=== PATIENT | female | born 1995 | race Caucasian/White ===

== ENCOUNTER 2020-07-10 04:59 | Emergency (ER) | payer BC, MEDICAID ==
[2020-07-10 05:06] VITALS: RESP 18; TEMP 98.1
[2020-07-10] MEDS ORDERED: KETOROLAC 15 MG/ML 1 ML VIAL IVP STA (05:35)
[2020-07-10] MEDS ORDERED: ONDANSETRON 4 MG/2 ML VIAL IVP STA (05:35)
--- NOTE | 2020-07-10 05:44 | ED ---
Abdominal Pain HPI - General Chief Complaint: Abdominal Pain Stated Complaint: abd pain, vomiting Time Seen by Provider: 07/10/20 05:27 Source: patient Mode of arrival: ambulatory Limitations: no limitations - History of Present Illness MD Complaint: abdominal pain Onset/Timin -: days(s) Location: RLQ Radiation: none Migration to: no migration Severity: severe Quality: cramping Consistency: colicky Improves With: nothing Worsens With: nothing Associated Symptoms: nausea, vomiting - Related Data LMP (females 10-50): this week Home Medications Medication Instructions Recorded Confirmed Nia-Jjen-Fagzc Acid 1 tab PO DAILY 11/17/14 11/17/14 [-U Capsule] Previous Rx's Medication Instructions Recorded Acetaminophen-Codeine 300-30mg 2 each PO Q4HR PRN #30 tab 11/19/14 [Tylenol w/codeine #3] Ibuprofen [Motrin] 600 mg PO Q6HR PRN #30 tab 11/19/14 Ondansetron Odt [Zofran ODT] 4 mg PO Q8HR PRN #10 tab 07/10/20 Allergies Allergy/AdvReac Type Severity Reaction Status Date / Time No Known Allergies Allergy Verified 07/10/20 05:06 Review of Systems ROS Statement: Those systems with pertinent positive or pertinent negative responses have been documented in the HPI. ROS Other: All systems not noted in ROS Statement are negative. Constitutional: Denies: fever, chills Respiratory: Denies: cough, dyspnea Cardiovascular: Denies: chest pain, palpitations, edema Gastrointestinal: Reports: as per HPI, abdominal pain, nausea, vomiting. Denies: diarrhea, constipation, melena, hematochezia Genitourinary: Denies: dysuria, hematuria Musculoskeletal: Denies: back pain Skin: Denies: rash Neurological: Denies: headache, weakness, numbness Past Medical History Past Medical History: No Reported History Additional Past Medical History / Comment(s): Obstetric history: This is her first and she has had care with me since 8 weeks gestation. O+, abs neg, Rub Imm, RPR NR, Hep neg, HIV NR. Declined quad, normal anatomy US. passed 1hr GTT and GBS neg. History of Any Multi-Drug Resistant Organisms: None Reported Past Surgical History: Adenoidectomy, Tonsillectomy Past Anesthesia/Blood Transfusion Reactions: No Reported Reaction Past Psychological History: No Psychological Hx Reported Smoking Status: Never smoker Past Alcohol Use History: Occasional Past Drug Use History: None Reported - Past Family History Father Family Medical History: No Reported History General Exam Limitations: no limitations General appearance: alert, in no apparent distress Head exam: Present: atraumatic, normocephalic Eye exam: Present: normal appearance. Absent: scleral icterus, conjunctival injection Neck exam: Present: normal inspection Respiratory exam: Present: normal lung sounds bilaterally. Absent: respiratory distress, wheezes, rales, rhonchi, stridor Cardiovascular Exam: Present: regular rate, normal rhythm, normal heart sounds. Absent: systolic murmur, diastolic murmur, rubs, gallop GI/Abdominal exam: Present: soft. Absent: distended, tenderness, guarding, rebound, rigid, mass, pulsatile mass Extremities exam: Present: normal inspection, normal capillary refill. Absent: pedal edema, calf tenderness Back exam: Present: normal inspection. Absent: CVA tenderness (R), CVA tend erness (L) Neurological exam: Present: alert Skin exam: Present: warm, dry, intact, normal color. Absent: rash Course Vital Signs 07/10/20 07/10/20 05:02 07:58 Temperature 98.1 F 98.1 F Pulse Rate 80 73 Respiratory 18 18 Rate Blood Pressure 133/87 109/74 O2 Sat by Pulse 99 99 Oximetry Medical Decision Making - Medical Decision Making 's patient with right lower quadrant abdominal pain and episode of vomiting. After analgesic in the emergency department she is feeling much better. The vomiting has resolved. There is no tenderness on the exam. We did discuss possibility of early appendicitis. Patient states also has had issues with constipation and will be given magnesium citrate to try at home. Discussed appropriate further care and follow-up including reevaluation of the abdomen in 12-24 hours if not improving sooner if any worsening. - Lab Data Result diagrams: 07/10/20 05:37 07/10/20 05:37 Lab Results 07/10/20 07/10/20 07/10/20 Range/Units 05:37 05:37 05:37 WBC 8.2 (3.8-10.6) k/uL RBC 4.86 (3.80-5.40) m/uL Hgb 14.1 (11.4-16.0) gm/dL Hct 40.1 (34.0-46.0) % MCV 82.5 (80.0-100.0) fL MCH 28.9 (25.0-35.0) pg MCHC 35.1 (31.0-37.0) g/dL RDW 12.7 (11.5-15.5) % Plt Count 222 (150-450) k/uL MPV 7.1 Neutrophils % 75 % Lymphocytes % 18 % Monocytes % 4 % Eosinophils % 1 % Basophils % 1 % Neutrophils # 6.2 (1.3-7.7) k/uL Lymphocytes # 1.5 (1.0-4.8) k/uL Monocytes # 0.4 (0-1.0) k/uL Eosinophils # 0.1 (0-0.7) k/uL Basophils # 0.0 (0-0.2) k/uL Sodium (137-145) mmol/L Potassium (3.5-5.1) mmol/L Chloride (98-107) mmol/L Carbon Dioxide (22-30) mmol/L Anion Gap mmol/L BUN (7-17) mg/dL Creatinine (0.52-1.04) mg/dL Est GFR (CKD-EPI)AfAm (>60 ml/min/1.73 sqM) Est GFR (CKD-EPI)NonAf (>60 ml/min/1.73 sqM) Glucose (74-99) mg/dL Calcium (8.4-10.2) mg/dL Total Bilirubin (0.2-1.3) mg/dL AST (14-36) U/L ALT (4-34) U/L Alkaline Phosphatase (38-126) U/L C-Reactive Protein (<10.0) mg/L Total Protein (6.3-8.2) g/dL Albumin (3.5-5.0) g/dL Amylase (30-110) U/L Lipase (23-300) U/L Urine Color Yellow Urine Appearance Clear (Clear) Urine pH 6.0 (5.0-8.0) Ur Specific [place] 1.024 (1.001-1.035) Urine Protein Negative (Negative) Urine Glucose (UA) Negative (Negative) Urine Ketones Negative (Negative) Urine Blood Trace H (Negative) Urine Nitrite Negative (Negative) Urine Bilirubin Negative (Negative) Urine Urobilinogen <2.0 (<2.0) mg/dL Ur Leukocyte Esterase Negative (Negative) Urine RBC 1 (0-5) /hpf Urine WBC 3 (0-5) /hpf Ur Squamous Epith Cells 2 (0-4) /hpf Hyaline Casts 1 (0-2) /lpf Urine Mucus Occasional H (None) /hpf Urine HCG, Qual Not Detected (Not Detectd) 07/10/20 Range/Units 05:37 WBC (3.8-10.6) k/uL RBC (3.80-5.40) m/uL Hgb (11.4-16.0) gm/dL Hct (34.0-46.0) % MCV (80.0-100.0) fL MCH (25.0-35.0) pg MCHC (31.0-37.0) g/dL RDW (11.5-15.5) % Plt Count (150-450) k/uL MPV Neutrophils % % Lymphocytes % % Monocytes % % Eosinophils % % Basophils % % Neutrophils # (1.3-7.7) k/uL Lymphocytes # (1.0-4.8) k/uL Monocytes # (0-1.0) k/uL Eosinophils # (0-0.7) k/uL Basophils # (0-0.2) k/uL Sodium 138 (137-145) mmol/L Potassium 3.4 L (3.5-5.1) mmol/L Chloride 105 (98-107) mmol/L Carbon Dioxide 26 (22-30) mmol/L Anion Gap 7 mmol/L BUN 10 (7-17) mg/dL Creatinine 0.65 (0.52-1.04) mg/dL Est GFR (CKD-EPI)AfAm >90 (>60 ml/min/1.73 sqM) Est GFR (CKD-EPI)NonAf >90 (>60 ml/min/1.73 sqM) Glucose 126 H (74-99) mg/dL Calcium 9.1 (8.4-10.2) mg/dL Total Bilirubin 1.0 (0.2-1.3) mg/dL AST 20 (14-36) U/L ALT 21 (4-34) U/L Alkaline Phosphatase 96 (38-126) U/L C-Reactive Protein 6.3 (<10.0) mg/L Total Protein 7.1 (6.3-8.2) g/dL Albumin 4.4 (3.5-5.0) g/dL Amylase 69 (30-110) U/L Lipase 62 (23-300) U/L Urine Color Urine Appearance (Clear) Urine pH (5.0-8.0) Ur Specific [place] (1.001-1.035) Urine Protein (Negative) Urine Glucose (UA) (Negative) Urine Ketones (Negative) Urine Blood (Negative) Urine Nitrite (Negative) Urine Bilirubin (Negative) Urine Urobilinogen (<2.0) mg/dL Ur Leukocyte Esterase (Negative) Urine RBC (0-5) /hpf Urine WBC (0-5) /hpf Ur Squamous Epith Cells (0-4) /hpf Hyaline Casts (0-2) /lpf Urine Mucus (None) /hpf Urine HCG, Qual (Not Detectd) Disposition Clinical Impression: Abdominal pain Disposition: HOME SELF-CARE Condition: Good Instructions (If sedation given, give patient instructions): Abdominal Pain (ED) Additional Instructions: As we discussed, should you experience worsening abdominal pain, or any of the other symptoms we discussed, return to make sure that this is not the start of appendicitis. Prescriptions: Ondansetron Odt [Zofran ODT] 4 mg PO Q8HR PRN #10 tab PRN Reason: Nausea Is patient prescribed a controlled substance at d/c from ED?: No Referrals: Best Thomas MD [Primary Care Provider] - 1-2 days
[2020-07-10 05:45] LABS: Basophils % (A) 1 %; Eosinophils # (A) 0.1 k/uL (0-0.7); Eosinophils % (A) 1 %; HCT 40.1 % (34.0-46.0); HGB 14.1 gm/dL (11.4-16.0); Lymphocytes # (A) 1.5 k/uL (1.0-4.8); Lymphocytes % (A) 18 %; MCH 28.9 pg (25.0-35.0); MCHC 35.1 g/dL (31.0-37.0); MCV 82.5 fL (80.0-100.0); Mean Platelet Volume 7.1; Monocytes # (A) 0.4 k/uL (0-1.0); Monocytes % (A) 4 %; Neutrophils # (A) 6.2 k/uL (1.3-7.7); Neutrophils % (A) 75 %; Platelet Count 222 k/uL (150-450); RBC 4.86 m/uL (3.80-5.40); RDW 12.7 % (11.5-15.5); WBC 8.2 k/uL (3.8-10.6)
[2020-07-10 05:47] LABS: Appearance,Urine Clear (Clear); Bilirubin,Urine Negative (Negative); Blood,Urine Trace (Negative); Color,Urine Yellow; Glucose,Urine (UA) Negative (Negative); Hyaline Casts,Urine 1 /lpf (0-2); Ketones,Urine Negative (Negative); Leukocyte Esterase,Urine Negative (Negative); Mucus,Urine Occasional /hpf; Nitrite,Urine Negative (Negative); Protein,Urine Negative (Negative); RBC,Urine 1 /hpf (0-5); Specific Gravity,Urine 1.024 (1.001-1.035); Squamous Epithelial Cell,Urine 2 /hpf (0-4); Urobilinogen,Urine <2.0 mg/dL (<2.0); WBC,Urine 3 /hpf (0-5)
[2020-07-10 05:58] LABS: ALT 21 U/L (4-34); AST 20 U/L (14-36); African American GFR (CKD) >90 (>60 ml/min/1.73 sqM); Albumin 4.4 g/dL (3.5-5.0); Alkaline Phosphatase 96 U/L (38-126); Amylase 69 U/L (30-110); Anion Gap 7 mmol/L; Blood Urea Nitrogen 10 mg/dL (7-17); C Reactive Protein 6.3 mg/L (<10.0); Calcium 9.1 mg/dL (8.4-10.2); Carbon Dioxide 26 mmol/L (22-30); Chloride 105 mmol/L (98-107); Glucose 126 mg/dL (74-99); Lipase 62 U/L (23-300); Non-African American GFR(CKD) >90 (>60 ml/min/1.73 sqM); Potassium 3.4 mmol/L (3.5-5.1); Sodium 138 mmol/L (137-145); Total Protein 7.1 g/dL (6.3-8.2)
--- NOTE | 2020-07-10 06:45 | XR ---
EXAMINATION TYPE: XR KUB DATE OF EXAM: 07/10/2020 6:19 AM CLINICAL HISTORY: Abdominal pain with nausea and vomiting. TECHNIQUE: Two Upright KUB images of the abdomen are obtained. COMPARISON: None. FINDINGS: Gas seen in nondistended stomach bubble. Scattered gas is seen in non-distended small bowel loops. Gas and fecal material is seen in non-distended colon. There is no visceromegaly or abnormal calcification appreciated. Splenic shadow is somewhat prominent. The lung bases are clear and the oss eous structures are intact. IMPRESSION: Overall nonobstructive bowel gas pattern.
[2020-07-10] MEDS ORDERED: MAGNESIUM CITRATE 296 ML BOTTLE PO ONE (07:40)
[2020-07-10 07:59] VITALS: BP 109/74; PULSE 73
== END 2020-07-10 08:00 | disposition home or self-care (01) ==
LOC: EC 04:59
DX: R10.31 Right lower quadrant pain (principal); K59.00 Constipation, unspecified
CPT/HCPCS: 36415; 80053; 82150; 83690; 85025; 86140; 81001; 81025; 74018; 99284; 96374; 96375; J2405; J1885

== ENCOUNTER 2020-07-14 13:05 | Emergency (ER) | payer MEDICAID ==
[2020-07-14 13:09] VITALS: TEMP 99.3
[2020-07-14 14:27] LABS: ALT 16 U/L (4-34); AST 20 U/L (14-36); African American GFR (CKD) >90 (>60 ml/min/1.73 sqM); Albumin 4.4 g/dL (3.5-5.0); Alkaline Phosphatase 79 U/L (38-126); Amylase 56 U/L (30-110); Anion Gap 8 mmol/L; Blood Urea Nitrogen 10 mg/dL (7-17); Calcium 9.2 mg/dL (8.4-10.2); Carbon Dioxide 28 mmol/L (22-30); Chloride 103 mmol/L (98-107); Glucose 100 mg/dL (74-99); Lipase 45 U/L (23-300); Non-African American GFR(CKD) >90 (>60 ml/min/1.73 sqM); Potassium 3.6 mmol/L (3.5-5.1); Sodium 139 mmol/L (137-145); Total Bilirubin 2.2 mg/dL (0.2-1.3); Total Protein 7.3 g/dL (6.3-8.2)
[2020-07-14 14:28] LABS: Appearance,Urine Cloudy (Clear); Bacteria,Urine Rare /hpf; Basophils % (A) 0 %; Bilirubin,Urine Negative (Negative); Blood,Urine Negative (Negative); Color,Urine Yellow; Eosinophils # (A) 0.1 k/uL (0-0.7); Eosinophils % (A) 1 %; Glucose,Urine (UA) Negative (Negative); HCT 37.6 % (34.0-46.0); HGB 13.5 gm/dL (11.4-16.0); Ketones,Urine Trace (Negative); Leukocyte Esterase,Urine Large (Negative); Lymphocytes # (A) 1.1 k/uL (1.0-4.8); Lymphocytes % (A) 14 %; MCH 29.7 pg (25.0-35.0); MCHC 35.9 g/dL (31.0-37.0); MCV 82.7 fL (80.0-100.0); Mean Platelet Volume 7.5; Monocytes # (A) 0.4 k/uL (0-1.0); Monocytes % (A) 5 %; Mucus,Urine Occasional /hpf; Neutrophils # (A) 6.2 k/uL (1.3-7.7); Neutrophils % (A) 79 %; Nitrite,Urine Negative (Negative); PH, Urine 6.5 (5.0-8.0); Platelet Count 197 k/uL (150-450); Protein,Urine Trace (Negative); RBC 4.54 m/uL (3.80-5.40); RBC,Urine 1 /hpf (0-5); RDW 12.5 % (11.5-15.5); Specific Gravity,Urine 1.027 (1.001-1.035); Squamous Epithelial Cell,Urine 6 /hpf (0-4); WBC 7.9 k/uL (3.8-10.6); WBC,Urine 30 /hpf (0-5)
--- NOTE | 2020-07-14 15:13 | CT ---
EXAMINATION TYPE: CT abdomen pelvis w con DATE OF EXAM: 07/14/2020 COMPARISON: NONE HISTORY: 25-year-old female Lower abdominal pain, tenderness upon palpation. TECHNIQUE: Contiguous axial scanning of the abdomen and pelvis following administration of 100 ml Iso alfonso 300 IV contrast. Delayed images through the kidneys and coronal/sagittal reconstructions perform ed. CT DLP: 1131.8 mGycm Automated exposure control for dose reduction was used. FINDINGS: LUNG BASES: Small hiatal hernia. No significant abnormality is otherwise appreciated. LIVER/GB: Some focal fat along the anterior falciform ligament. No biliary ductal dilatation. Portal venous system is patent. Gallbladder within normal limits. PANCREAS: No significant abnormality is seen. SPLEEN: Enlarged at 15.2 cm measured on coronal series. ADRENALS: No significant abnormality is seen. KIDNEYS: No significant abnormality is seen. LYMPH NODES: No mesenteric or retroperitoneal lymphadenopathy. No pelvic lymphadenopathy seen. BOWEL: No dilated small bowel or free air. Scattered trace lower abdominal ascites is present. More m ild to moderate ascites in the pelvis. Mild stool within the right side of the colon. Normal appendix . No pericolonic inflammatory change. PELVIS: Uterus is anteverted. Both ovaries are visualized with follicular change. Adjacent to the rig ht ovary is a 6.3 cm cystic lesion with surrounding fat stranding and free fluid. Otherwise, the ovar ies show follicular change. BONES: No osseous destructive process. IMPRESSION: 1. INFLAMMATORY CHANGE IN THE PELVIS WITH MILD TO MODERATE PELVIC ASCITES. CHANGES SEEM TO BE CENTERE D ON A 6.3 CM CYSTIC LESION ADJACENT TO THE RIGHT OVARY, POSSIBLE PARAOVARIAN CYST. GIVEN THE INFLAMM ATION, CORRELATE TO EXCLUDE PID OR OTHER ENTITIES SUCH SUPERINFECTION OF A HINDGUT DUPLICATION CYS T. PELVIC ULTRASOUND MAY BE HELPFUL IN FURTHER CHARACTERIZING. 2. TRACE ASCITES EXTENDS INTO THE LOWER ABDOMEN. 3. SPLENOMEGALY AT 15.2 CM. SMALL HIATAL HERNIA.
[2020-07-14 15:49] VITALS: RESP 18
[2020-07-14] MEDS ORDERED: MORPHINE SULFATE 2 MG/ML SYRINGE IVP STA (15:56)
[2020-07-14] MEDS ORDERED: AMPICILLIN-SULBACTAM 1.5 GM in SODIUM CHLORIDE 0.9% 50 ML IVPB STA (16:03)
[2020-07-14] MEDS ORDERED: DOXYCYCLINE 100 MG CAP PO STA (16:03)
[2020-07-14] MEDS ORDERED: AMPICILLIN-SULBACTAM 3 GM in SODIUM CHLORIDE 0.9% 100 ML IVPB STA (16:05)
[2020-07-14] MEDS ORDERED: SODIUM CHLORIDE 0.9% 1,000 ML IV ONE (16:07)
--- NOTE | 2020-07-14 16:07 | US ---
EXAMINATION TYPE: US pelvic complete plus Doppler DATE OF EXAM: 07/14/2020 COMPARISON: NONE CLINICAL HISTORY: 25-year-old female abdominal pain. Abnormal CT, extreme pelvic pain x 6 days, , low grade fever yesterday TECHNIQUE: Transabdominal sonographic images of the pelvis were acquired. Color Doppler spectral wave form analysis of the ovarian arteries and veins. Date of LMP: 07/09/2020 FINDINGS: EXAM MEASUREMENTS: Uterus: 8.3 x 4.6 x 2.9 cm Endometrial Stripe: 0.6 cm Right Ovary: 4.6 x 3.7 x 2.7 cm Left Ovary: 3.6 x 2.3 x 2.5 cm 1. Uterus: Anteverted and otherwise wnl 2. Endometrium: wnl 3. Right Ovary: 5.3 x 5.3 x 5.8cm adjacent cyst 4. Left Ovary: wnl Spectral, color and waveform doppler imaging shows good arterial and venous flow within the ovaries ; there is no evidence for ovarian torsion. 5. Bilateral Adnexa: mild free fluid in rt adnexa 6. Posterior cul-de-sac: wnl IMPRESSION: 1. Ultrasound shows a 5.8 cm right paraovarian cyst. This does not clearly have the appearance of tub al pathology to suggest a tubo-ovarian abscess. Given the inflammation on CT, PID remains in the diff erential. Clinically correlate. 2. Mild right adnexal free fluid. 3. No evidence for ovarian torsion on either side.
[2020-07-14] MEDS ORDERED: SODIUM CHLORIDE 0.9% 1,000 ML IV SCH (16:15)
--- NOTE | 2020-07-14 16:22 | ED ---
Abdominal Pain HPI - General Chief Complaint: Abdominal Pain Stated Complaint: abd pain Time Seen by Provider: 07/14/20 13:10 Source: patient Mode of arrival: ambulatory Limitations: no limitations - History of Present Illness Initial Comments: 25-year-old female presented for 5 days of lower abdominal pain. Patient states she was recently seen here 5 days ago and had an x-ray and thought she was constipated. Patient states she was discharged with oral constipation medications she states that this did not help with the pain persisted. Patient denies dysuria urgency frequency she states the pain is mostly right-sided and at times radiates to the back. Patient denies fevers she states she has had some nausea no vomiting no diarrhea. Patient denies hematuria history of kidney stones. Patient states she had a 1 day otherwise no vaginal bleeding. pt denies chest pain, dyspnea, upper abdominal pain. pt appears well nontoxic no arrival. - Related Data Home Medications Medication Instructions Recorded Confirmed Ibuprofen [Motrin Ib] 400 mg PO Q8H PRN 07/14/20 07/14/20 Previous Rx's Medication Instructions Recorded Cephalexin [Keflex] 500 mg PO Q8HR 5 Days #15 cap 07/14/20 Doxycycline [Vibramycin] 100 mg PO BID 14 Days #28 capsule 07/14/20 Allergies Allergy/AdvReac Type Severity Reaction Status Date / Time No Known Allergies Allergy Verified 07/14/20 13:37 Review of Systems ROS Statement: Those systems with pertinent positive or pertinent negative responses have been documented in the HPI. ROS Other: All systems not noted in ROS Statement are negative. Past Medical History Past Medical History: No Reported History Additional Past Medical History / Comment(s): Obstetric history: This is her first and she has had care with [facility] since 8 weeks gestation. O+, abs neg, Rub Imm, RPR NR, Hep neg, HIV NR. Declined quad, normal anatomy US. passed 1hr GTT and GBS neg. History of Any Multi-Drug Resistant Organisms: None Reported Past Surgical History: Adenoidectomy, Tonsillectomy Past Anesthesia/Blood Transfusion Reactions: No Reported Reaction Past Psychological History: No Psychological Hx Reported Smoking Status: Never smoker Past Alcohol Use History: Occasional Past Drug Use History: None Reported - Past Family History Father Family Medical History: No Reported History General Exam - General Exam Comments Initial Comments: General: The patient is awake and alert, in no distress Eye: Pupils are equal, round and reactive to light, extra-ocular movements are intact. No nystagmus. There is normal conjunctiva bilaterally. No signs of icterus. Ears, nose, mouth and throat: There are moist mucous membranes and no oral lesions. Neck: The neck is supple, there is no tenderness or JVD. Cardiovascular: There is a regular rate and rhythm. No murmur, rub or gallop is appreciated. Respiratory: Lungs are clear to auscultation, respirations are non-labored, breath sounds are equal. No wheezes, stridor, rales, or rhonchi. Gastrointestinal: Soft, non-distended, diffuse lower abdomina tenderness, poor ly localized overall, L>R. abdomen without masses or organomegaly noted. There is no rebound or guarding present. : pelvic discharge, os closed. some lesions on cervix noted. no external lesions. patient has no specific odors. No cervical motion tenderness very mild left sided adnexal tenderness. Negative chandelier sign Musculoskeletal: Normal ROM, no tenderness. Strength 5/5. Sensation intact. Pulses equal bilaterally 2+. Neurological: A&O x 3. CN II-XII intact grossly, There are no obvious motor or sensory deficits. Coordination appears grossly intact. Speech is normal. Skin: Skin is warm and dry and no rashes or lesions are noted. Psychiatric: Cooperative, appropriate mood & affect, normal judgment. Limitations: no limitations Course Vital Signs 07/14/20 07/14/20 07/14/20 13:06 15:47 16:34 Temperature 99.3 F Pulse Rate 107 H 90 88 Respiratory 20 18 18 Rate Blood Pressure 113/76 109/75 110/75 O2 Sat by Pulse 100 99 100 Oximetry Medical Decision Making - Medical Decision Making Lab stable no leukocytosis patient afebrile nontoxic in appearance. Patient is diffuse lower abdominal tenderness urine concerning for urinary tract infection. Patient pelvic does have some discharge I discussed the cervical lesions and recommended PAP and OBGYN f/u for that finding. Patient CT possible paraovarian cyts. No obvious abscess, or TOA. Patient US no obvious TOA. PID remaining in differential per radiology. No fevers. No leukocytosis negative chandelier sign/cervical motion tenderness. I discussed the case with patients [facility] doctor David after discussing CT results/US results. Labs she feels treating patient for STI and f/u for cyst in office is appropriate this time. I discussed case with Dr Beach who is agreeable to this care plan and discharge, recommending outpatient doxycyclin. Pt agreeable to care plan state she is comfortable wtih disdcharege, pain improved. return parameters discussed at length. - Lab Data Result diagrams: 07/14/20 13:30 07/14/20 13:30 Lab Results 07/14/20 07/14/20 07/14/20 Range/Units 13:30 13:30 13:30 WBC 7.9 (3.8-10.6) k/uL RBC 4.54 (3.80-5.40) m/uL Hgb 13.5 (11.4-16.0) gm/dL Hct 37.6 (34.0-46.0) % MCV 82.7 (80.0-100.0) fL MCH 29.7 (25.0-35.0) pg MCHC 35.9 (31.0-37.0) g/dL RDW 12.5 (11.5-15.5) % Plt Count 197 (150-450) k/uL MPV 7.5 Neutrophils % 79 % Lymphocytes % 14 % Monocytes % 5 % Eosinophils % 1 % Basophils % 0 % Neutrophils # 6.2 (1.3-7.7) k/uL Lymphocytes # 1.1 (1.0-4.8) k/uL Monocytes # 0.4 (0-1.0) k/uL Eosinophils # 0.1 (0-0.7) k/uL Basophils # 0.0 (0-0.2) k/uL Sodium (137-145) mmol/L Potassium (3.5-5.1) mmol/L Chloride (98-107) mmol/L Carbon Dioxide (22-30) mmol/L Anion Gap mmol/L BUN (7-17) mg/dL Creatinine (0.52-1.04) mg/dL Est GFR (CKD-EPI)AfAm (>60 ml/min/1.73 sqM) Est GFR (CKD-EPI)NonAf (>60 ml/min/1.73 sqM) Glucose (74-99) mg/dL Plasma Lactic Acid Amanuel (0.7-2.0) mmol/L Calcium (8.4-10.2) mg/dL Total Bilirubin (0.2-1.3) mg/dL AST (14-36) U/L ALT (4-34) U/L Alkaline Phosphatase (38-126) U/L Total Protein (6.3-8.2) g/dL Albumin (3.5-5.0) g/dL Amylase (30-110) U/L Lipase (23-300) U/L Urine Color Yellow Urine Appearance Cloudy H (Clear) Urine pH 6.5 (5.0-8.0) Ur Specific [place] 1.027 (1.001-1.035) Urine Protein Trace H (Negative) Urine Glucose (UA) Negative (Negative) Urine Ketones Trace H (Negative) Urine Blood Negative (Negative) Urine Nitrite Negative (Negative) Urine Bilirubin Negative (Negative) Urine Urobilinogen 2.0 (<2.0) mg/dL Ur Leukocyte Esterase Large H (Negative) Urine RBC 1 (0-5) /hpf Urine WBC 30 H (0-5) /hpf Ur Squamous Epith Cells 6 H (0-4) /hpf Urine Bacteria Rare H (None) /hpf Urine Mucus Occasional H (None) /hpf Urine HCG, Qual Not Detected (Not Detectd) 07/14/20 07/14/20 Range/Units 13:30 13:30 WBC (3.8-10.6) k/uL RBC (3.80-5.40) m/uL Hgb (11.4-16.0) gm/dL Hct (34.0-46.0) % MCV (80.0-100.0) fL MCH (25.0-35.0) pg MCHC (31.0-37.0) g/dL RDW (11.5-15.5) % Plt Count (150-450) k/uL MPV Neutrophils % % Lymphocytes % % Monocytes % % Eosinophils % % Basophils % % Neutrophils # (1.3-7.7) k/uL Lymphocytes # (1.0-4.8) k/uL Monocytes # (0-1.0) k/uL Eosinophils # (0-0.7) k/uL Basophils # (0-0.2) k/uL Sodium 139 (137-145) mmol/L Potassium 3.6 (3.5-5.1) mmol/L Chloride 103 (98-107) mmol/L Carbon Dioxide 28 (22-30) mmol/L Anion Gap 8 mmol/L BUN 10 (7-17) mg/dL Creatinine 0.70 (0.52-1.04) mg/dL Est GFR (CKD-EPI)AfAm >90 (>60 ml/min/1.73 sqM) Est GFR (CKD-EPI)NonAf >90 (>60 ml/min/1.73 sqM) Glucose 100 H (74-99) mg/dL Plasma Lactic Acid Amanuel 1.2 (0.7-2.0) mmol/L Calcium 9.2 (8.4-10.2) mg/dL Total Bilirubin 2.2 H (0.2-1.3) mg/dL AST 20 (14-36) U/L ALT 16 (4-34) U/L Alkaline Phosphatase 79 (38-126) U/L Total Protein 7.3 (6.3-8.2) g/dL Albumin 4.4 (3.5-5.0) g/dL Amylase 56 (30-110) U/L Lipase 45 (23-300) U/L Urine Color Urine Appearance (Clear) Urine pH (5.0-8.0) Ur Specific [place] (1.001-1.035) Urine Protein (Negative) Urine Glucose (UA) (Negative) Urine Ketones (Negative) Urine Blood (Negative) Urine Nitrite (Negative) Urine Bilirubin (Negative) Urine Urobilinogen (<2.0) mg/dL Ur Leukocyte Esterase (Negative) Urine RBC (0-5) /hpf Urine WBC (0-5) /hpf Ur Squamous Epith Cells (0-4) /hpf Urine Bacteria (None) /hpf Urine Mucus (None) /hpf Urine HCG, Qual (Not Detectd) Disposition Clinical Impression: Abdominal pain, Nausea, UTI (urinary tract infection), Ovarian cyst Disposition: HOME SELF-CARE Condition: Good Instructions (If sedation given, give patient instructions): Pelvic Inflammatory Disease (ED), Ovarian Cyst (ED) Additional Instructions: Please use medication as discussed. Please follow-up with family doctor in the next 2 days, please follow-up with [facility] next week. Return for fevers worsening pain. Please return to emergency room if the symptoms increase or worsen or for any other concerns. Prescriptions: Cephalexin [Keflex] 500 mg PO Q8HR 5 Days #15 cap Doxycycline [Vibramycin] 100 mg PO BID 14 Days #28 capsule Is patient prescribed a controlled substance at d/c from ED?: No Referrals: Best Thomas MD [Primary Care Provider] - 1-2 days Gay Hernandez DO [Doctor of Osteopathic Medicine] - Time of Disposition: 17:14
[2020-07-14] MEDS ORDERED: AZITHROMYCIN 500 MG TAB PO STA (16:47)
[2020-07-14] MEDS ORDERED: cefTRIAXone IN SWFI 1,000 MG/10 ML SYRINGE IVP STA (16:57)
[2020-07-14 17:38] VITALS: BP 109/67; PULSE 84
== END 2020-07-14 17:57 | disposition home or self-care (01) ==
LOC: EC 13:05
DX: N39.0 Urinary tract infection, site not specified (principal); N83.201 Unspecified ovarian cyst, right side
CPT/HCPCS: 99284; 96365; 96375 ×2; 36415; 80053; 82150; 83605; 83690; 85025; 81001; 81025; 87491; 87591; 87070; 87086; 93975; 76856; 74177; J0696; J2270; J0295; Q9967

== ENCOUNTER → 2020-08-24 | Outpatient (CLI) | payer MEDICAID ==
[2020-08-24 16:11] LABS: Basophils # (A) 0.01 X 10*3/uL (0.00-0.10); Basophils % (A) 0.2 %; Eosinophils # (A) 0.04 X 10*3/uL (0.04-0.35); Eosinophils % (A) 0.9 %; HCT 38.6 % (37.2-46.3); HGB 12.8 g/dL (12.0-15.0); Lymphocytes # (A) 1.65 X 10*3/uL (0.90-5.00); Lymphocytes % (A) 37.3 %; MCH 28.6 pg (27.0-32.0); MCHC 33.2 g/dL (32.0-37.0); MCV 86.4 fL (80.0-97.0); Mean Platelet Volume 11.3 fL (9.5-12.2); Monocytes # (A) 0.34 X 10*3/uL (0.20-1.00); Monocytes % (A) 7.7 %; Neutrophils # (A) 2.37 X 10*3/uL (1.80-7.70); Neutrophils % (A) 53.7 %; Platelet Count 195 X 10*3/uL (140-440); RBC 4.47 X 10*6/uL (4.10-5.20); RDW 13.2 % (11.5-14.5); WBC 4.42 X 10*3/uL (4.50-10.00)
[2020-08-24 16:46] LABS: African American GFR (CKD) 117.1 (60.0-200.0); Albumin 4.9 g/dL (3.80-4.90); Albumin/Globulin Ratio 2.72 (1.60-3.17); BUN/Creat Ratio 17.5 Ratio (12.00-20.00); Calcium 9.1 mg/dL (8.7-10.3); Chol/HDL Ratio 3.9; Globulin 1.8 g/dL (1.6-3.3); LDL Cholesterol,Calculated 100.8 mg/dL (0.0-131.0); Total Bilirubin 2.1 mg/dL (0.3-1.2); Total Protein 6.7 g/dL (6.2-8.2); VLDL Calculation 15.2 mg/dL (5.00-40.00)
== END | disposition home or self-care (01) ==
LOC: LABWHC1 10:25
PROVIDERS: ATTEND Family Medicine
DX: Z00.00 Encounter for general adult medical examination without abnormal findings (principal)
CPT/HCPCS: 36415; 80053; 80061; 82306; 85025

== ENCOUNTER → 2020-08-31 | Outpatient (CLI) | payer MEDICAID ==
--- NOTE | 2020-08-31 09:17 | US ---
EXAMINATION TYPE: US pelvis complete transvag DATE OF EXAM: 08/31/2020 COMPARISON: 07/14/2020 CLINICAL HISTORY: 25-year-old female N83.0 right ovarian cyst. Follow up right adnexal cystic lesion. Patient states no pain. TECHNIQUE: Transvaginal (TV) and Transabdominal (TA) . Transabdominal sonographic images of the pel vis were acquired. Transvaginal sonographic images were medically necessary to better assess the fol lowing anatomy: Ovaries Date of LMP: 08/30/2020, FINDINGS: EXAM MEASUREMENTS: Uterus: 6.6 x 5.0 x 4.1 cm Endometrial Stripe: 0.3 cm Right Ovary: 2.7 x 2.3 x 2.0 cm Left Ovary: 3.5 x 2.6 x 2.0 cm 1. Uterus: Anteverted and otherwise wnl 2. Endometrium: wnl 3. Right Ovary: wnl 4. Left Ovary: wnl 5. Bilateral Adnexa: Thick walled cystic lesion with internal echoes adjacent to right ovary = 3.8 x 4.3 x 3.4 cm. Previously measuring 5.8 x 5.3 cm. Possible 9 mm mural-based papillary projection on t he transvaginal images. Mild free fluid adjacent to right ovary. 6. Posterior cul-de-sac: Mild Free fluid IMPRESSION: 1. Right paraovarian cyst remains measuring up to 4.3 cm (versus 5.8 cm, previously). While smaller, the wall appears thicker and there are new internal echoes/debris. Questionable 9 mm papillary projec tion on the transvaginal images. Given the decreasing size, some improvement is suggested. Continued follow-up recommended. 2. Mild right adnexal and cul-de-sac free fluid remains.
== END | disposition home or self-care (01) ==
LOC: RADUSWWP 07:17
PROVIDERS: ATTEND Obstetrics & Gynecology
DX: N83.01 Follicular cyst of right ovary (principal)
CPT/HCPCS: 76830; 76856

== ENCOUNTER 2020-10-05 18:29 | Emergency (ER) | payer MEDICAID ==
--- NOTE | 2020-10-05 19:43 | XR ---
EXAMINATION TYPE: XR chest 2V DATE OF EXAM: 10/05/2020 COMPARISON: NONE HISTORY: Cough. Short of breath. TECHNIQUE: 2 views FINDINGS: Heart and mediastinum are normal. There is some mild infiltrate at the posterior lung bases bilaterally. There are no hilar masses. Bony thorax is intact. IMPRESSION: Mild posterior lung base infiltrates. Normal heart.
--- NOTE | 2020-10-05 21:25 | ED ---
URI HPI - General Chief Complaint: Upper Respiratory Infection Stated Complaint: covid+/sob/cough/nausea/fever Time Seen by Provider: 10/05/20 21:15 Source: patient, RN notes reviewed Mode of arrival: ambulatory Limitations: no limitations - History of Present Illness Initial Comments: Patient is a 25-year-old female presents to emergency room complaining of cough after recently testing positive for Covid on 09/29/2020. She notes that she started having symptoms on 09/28/2020 but developed a cough over the last couple days. She notes a cough is dry nonproductive. She denies any increased shortness of breath or dyspnea. She wanted to come emergency room to get evaluated make sure she doesn't have have a pneumonia or any worsening issues. He denied any chest pain headache nausea vomiting diarrhea constipation fatigue chills. - Related Data Home Medications Medication Instructions Recorded Confirmed Ibuprofen [Motrin Ib] 400 mg PO Q8H PRN 07/14/20 07/14/20 Previous Rx's Medication Instructions Recorded Cephalexin [Keflex] 500 mg PO Q8HR 5 Days #15 cap 07/14/20 Doxycycline [Vibramycin] 100 mg PO BID 14 Days #28 capsule 07/14/20 Allergies Allergy/AdvReac Type Severity Reaction Status Date / Time No Known Allergies Allergy Verified 10/05/20 19:22 Review of Systems ROS Statement: Those systems with pertinent positive or pertinent negative responses have been documented in the HPI. ROS Other: All systems not noted in ROS Statement are negative. Past Medical History Past Medical History: No Reported History Additional Past Medical History / Comment(s): Obstetric history: This is her first and she has had care with [facility] since 8 weeks gestation. O+, abs neg, Rub Imm, RPR NR, Hep neg, HIV NR. Declined quad, normal anatomy US. passed 1hr GTT and GBS neg. History of Any Multi-Drug Resistant Organisms: None Reported Past Surgical History: Adenoidectomy, Tonsillectomy Past Anesthesia/Blood Transfusion Reactions: No Reported Reaction Past Psychological History: No Psychological Hx Reported Smoking Status: Never smoker Past Alcohol Use History: Occasional Past Drug Use History: None Reported - Past Family History Father Family Medical History: No Reported History General Exam Limitations: no limitations General appearance: alert, in no apparent distress Head exam: Present: atraumatic, normocephalic, normal inspection Eye exam: Present: normal appearance, PERRL, EOMI. Absent: scleral icterus, conjunctival injection, periorbital swelling Neck exam: Present: normal inspection. Absent: tenderness, meningismus, lymphadenopathy Respiratory exam: Present: normal lung sounds bilaterally. Absent: respiratory distress, wheezes, rales, rhonchi, stridor Cardiovascular Exam: Present: regular rate, normal rhythm, normal heart sounds. Absent: systolic murmur, diastolic murmur, rubs, gallop, clicks GI/Abdominal exam: Present: soft, normal bowel sounds. Absent: distended, tenderness, guarding, rebound, rigid Extremities exam: Present: normal inspection, full ROM, normal capillary refill. Absent: tenderness, pedal edema, joint swelling, calf tenderness Neurological exam: Present: alert, oriented X3, CN II-XII intact Psychiatric exam: Present: normal affect, normal mood Skin exam: Present: warm, dry, intact, normal color. Absent: rash Course Vital Signs 10/05/20 19:18 Temperature 100.9 F H Pulse Rate 122 H Respiratory 24 Rate Blood Pressure 118/73 O2 Sat by Pulse 97 Oximetry Medical Decision Making - Medical Decision Making [age] female that test positive for Covid on 09/29/2020 complaining of cough. Patient declined any Tylenol or Motrin for fever. States that she has at home and would like to discharge. Case discussed with Dr. Mart, patient can discharge home with conservative management and follow-up to primary care. - Radiology Data Radiology results: report reviewed, image reviewed Chest x-ray: No acute cardiopulmonary issues. Disposition Clinical Impression: COVID-19, Cough Disposition: HOME SELF-CARE Condition: Stable Instructions (If sedation given, give patient instructions): Coronavirus Dise ase 2019 (COVID-19) Additional Instructions: Please return to the Emergency Department if symptoms worsen or any other concerns. Tylenol Motrin alternating for fever and muscle aches. Follow-up with primary care after quarantining. Per CDC guidelines quarantine for 10-14 days from symptom onset. Is patient prescribed a controlled substance at d/c from ED?: No Referrals: Best Thomas MD [Primary Care Provider] - 1-2 days Time of Disposition: 21:24
[2020-10-05 21:59] VITALS: RESP 18
[2020-10-05 22:00] VITALS: BP 111/66; PULSE 112; TEMP 102.8
== END 2020-10-05 22:00 | disposition home or self-care (01) ==
LOC: EC 18:29
DX: U07.1 COVID-19 (principal)
CPT/HCPCS: 71046; 99284

== ENCOUNTER → 2022-04-17 | Outpatient (CLI) | payer MEDICAID ==
--- NOTE | 2022-04-17 11:53 | US ---
EXAMINATION TYPE: US OB >= 14 wk fetus DATE OF EXAM: 04/17/2022 COMPARISON: None CLINICAL HISTORY: Z36.89 ENCOUNTER FOR OTHER SPECIFIED SCR Confirm Dates TECHNIQUE: Transabdominal (TA) GESTATIONAL AGE / DATING Physician Established: Not yet established Dates by LMP: (12 weeks/4 days) EDC: 10/26/2022 Dates by First Scan: No previous this is first scan Dates by Current Scan: (14 weeks/5 days) EDC: 10/26/2022 SURVEY IUP: Single PLACENTA: Anterior PREVIA: Marginal LUISA: 10.6 cm Normal CERVICAL LENGTH (transabdominal: norm > 3.0cm): 3.4 cm BIOMETRY PRESENTATION: Variable BPD: 2.8 cm 15 weeks / 1 days HC: 10.3 cm 14 weeks / 6 days AC: 7.9 cm 14 weeks / 3 days FL: 1.5 cm 14 weeks / 3 days ESTIMATED WEIGHT IN GRAMS: 98 grams ESTIMATED WEIGHT IN LBS/OZ: 0 lbs. 3 oz. WEIGHT PERCENTAGE BASED ON ESTABLISHED DATES: 98% HC/AC: 1.30 Normal FL/AC: 19 Normal HEART RATE: 153 bpm RHYTHM: Normal Single, viable IUP/ Marginal previa, otherwise no abnormality visualized at this time IMPRESSION: Single viable intrauterine corresponding to an ultrasound age 14 weeks 5 days with estimate d date of delivery 10/26/2022. Marginal placenta previa
[2022-04-17 18:46] LABS: HGB 11.7 g/dL (12.0-15.0); MCH 29.7 pg (27.0-32.0); MCHC 34.4 g/dL (32.0-37.0); MCV 86.3 fL (80.0-97.0); Mean Platelet Volume 10.9 fL (9.5-12.2); NRBC Per 100 WBC 0 /100 WBCS (0.0-0.0); Platelet Count 169 X 10*3/uL (140-440); RBC 3.94 X 10*6/uL (4.10-5.20); RDW 13.2 % (11.5-14.5); WBC 7.65 X 10*3/uL (4.50-10.00)
[2022-04-17 19:03] LABS: African American GFR (CKD) 152.7 (60.0-200.0); Non-African American GFR(CKD) 131.7 (60.0-200.0)
[2022-04-17 19:10] LABS: Hepatitis B Surface Antigen Nonreactive (Nonreactive); Hepatitis C IgG Antibody Nonreactive (Nonreactive)
[2022-04-17 21:23] LABS: HIV 2 AB Non-Reactive (Non-Reactive); HIV AB P24 Non-Reactive (Non-Reactive); HIV P24 AG Non-Reactive (Non-Reactive)
[2022-04-18 04:28] LABS: Toxoplasma Antibody (IgG) <3.0 IU/mL (<7.2); Toxoplasma Antibody (IgM) <3.0 AU/mL (<8.0)
== END | disposition home or self-care (01) ==
LOC: RADUSWWP 11:03
PROVIDERS: ATTEND Obstetrics & Gynecology
DX: Z36.89 Encounter for other specified antenatal screening (principal); Z3A.14 14 weeks gestation of pregnancy
CPT/HCPCS: 76805; 82565; 82947; 85027; 86762; 86777; 86778; 86780; 86803; 87340; 87390

== ENCOUNTER → 2022-05-17 | Outpatient (CLI) | payer MEDICAID ==
--- NOTE | 2022-05-17 14:43 | US ---
EXAMINATION TYPE: US OB >= 14 wk fetus DATE OF EXAM: 05/17/2022 COMPARISON: 04/17/2022 CLINICAL HISTORY: O36.62X0 MATERNAL CARE FOR EXCESS GROWTH, Anatomy scan TECHNIQUE: Transabdominal (TA) GESTATIONAL AGE / DATING Physician Established: (19 weeks/0 days) EDC: 10/11/2022 Dates by LMP: LMP unknown Dates by Current Scan: (18 weeks/6 days) EDC: 10/12/2022 SURVEY IUP: Single PLACENTA: Anterior PREVIA: No Previa LUISA: 14.65 cm Normal CERVICAL LENGTH (transabdominal: norm > 3.0cm): 4.2 cm BIOMETRY PRESENTATION: Variable LIE: Transverse with head maternal Left BPD: 4.48 cm 19 weeks / 4 days HC: 16.57 cm 19 weeks / 2 days AC: 12.87 cm 18 weeks / 3 days FL: 2.92 cm 19 weeks / 0 days ESTIMATED WEIGHT IN GRAMS: 256.63 grams ESTIMATED WEIGHT IN LBS/OZ: 0 lbs. 9 oz. WEIGHT PERCENTAGE BASED ON ESTABLISHED DATES: 32.2% HC/AC: 1.29 Slighty out of range (1.09-1.26) FL/HC: 17.61Normal HEART RATE: 149 bpm RHYTHM: Normal IMPRESSION: Single intrauterine gestation estimated age 18 weeks 6 days gestation based on the current ultrasound measurements. Cardiac activity measures 149 bpm.
== END | disposition home or self-care (01) ==
LOC: RADUSWWP 12:15
PROVIDERS: ATTEND Obstetrics & Gynecology
DX: O36.62X0 Maternal care for excessive fetal growth, second trimester, not applicable or unspecified (principal); Z3A.18 18 weeks gestation of pregnancy
CPT/HCPCS: 76805

== ENCOUNTER → 2022-07-05 | Outpatient (CLI) | payer MEDICAID ==
[2022-07-05 18:33] LABS: HCT 32.7 % (37.2-46.3); HGB 10.7 g/dL (12.0-15.0); MCH 30.1 pg (27.0-32.0); MCHC 32.7 g/dL (32.0-37.0); MCV 92.1 fL (80.0-97.0); Mean Platelet Volume 10.7 fL (9.5-12.2); NRBC Per 100 WBC 0 /100 WBCS (0.0-0.0); Platelet Count 155 X 10*3/uL (140-440); RBC 3.55 X 10*6/uL (4.10-5.20); RDW 13.9 % (11.5-14.5); WBC 7.55 X 10*3/uL (4.50-10.00)
== END | disposition home or self-care (01) ==
LOC: LABWHC1 09:32
PROVIDERS: ATTEND Obstetrics & Gynecology
DX: Z34.82 Encounter for supervision of other normal pregnancy, second trimester (principal); Z3A.00 Weeks of gestation of pregnancy not specified
CPT/HCPCS: 36415; 82950; 85027

== ENCOUNTER 2022-10-08 05:57 | Inpatient (IN) | payer MEDICAID ==
[2022-10-08] MEDS ORDERED: TRANEXAMIC ACID IN NACL,ISO-OS 1,000 MG in EMPTY BAG 1 BAG IV PRN (06:03)
[2022-10-08] MEDS ORDERED: miSOPROStoL 200 MCG TAB PO PRN (06:03)
[2022-10-08] MEDS ORDERED: CARBOPROST TROMETHAMINE 250 MCG/ML 1 ML AMP IM PRN (06:03)
[2022-10-08] MEDS ORDERED: LIDOCAINE 0.5% (PF) 5 MG/ML (50 ML SDV) SQ PRN (06:03)
[2022-10-08] MEDS ORDERED: TERBUTALINE 1 MG/ML VIAL SQ PRN (06:03)
[2022-10-08] MEDS ORDERED: OXYTOCIN 10 UNIT/ML 1 ML VIAL IM PRN (06:03)
[2022-10-08] MEDS ORDERED: METHYLERGONOVINE 0.2 MG/ML 1 ML AMP IM PRN (06:03)
[2022-10-08] MEDS ORDERED: OXYTOCIN 30 UNITS/500 ML NS 30 UNIT in SALINE 1 500ML.BAG IV SCH (06:15)
[2022-10-08 06:21] LABS: Glucose,Whole Blood 92 mg/dL (70-110)
[2022-10-08 06:41] LABS: Basophils % (A) 0 %; Eosinophils # (A) 0.1 k/uL (0-0.7); Eosinophils % (A) 2 %; HCT 35.5 % (34.0-46.0); HGB 12.6 gm/dL (11.4-16.0); Lymphocytes # (A) 1.4 k/uL (1.0-4.8); Lymphocytes % (A) 20 %; MCH 29.9 pg (25.0-35.0); MCHC 35.5 g/dL (31.0-37.0); MCV 84.3 fL (80.0-100.0); Mean Platelet Volume 9.3; Monocytes # (A) 0.4 k/uL (0-1.0); Monocytes % (A) 5 %; Neutrophils # (A) 5.1 k/uL (1.3-7.7); Neutrophils % (A) 70 %; Platelet Count 163 k/uL (150-450); Poikilocytosis Slight; WBC 7.3 k/uL (3.8-10.6)
[2022-10-08] MEDS: LACTATED RINGERS 1,000 ML IV SCH ×3 (06:49→13:50)
[2022-10-08 08:02] LABS: Glucose,Whole Blood 90 mg/dL (70-110)
[2022-10-08 08:58] LABS: Glucose,Whole Blood 86 mg/dL (70-110)
[2022-10-08 10:02] LABS: Glucose,Whole Blood 81 mg/dL (70-110)
[2022-10-08] MEDS ORDERED: SODIUM CHLORIDE 0.9% 100 ML BAG ONE (10:40)
[2022-10-08] MEDS ORDERED: fentaNYL (PF) 50 MCG/ML 5 ML AMP ONE (10:40)
[2022-10-08] MEDS ORDERED: ROPIVACAINE 5 MG/ML 20 ML AMPULE ONE (10:40)
[2022-10-08 11:06] LABS: Glucose,Whole Blood 78 mg/dL (70-110)
[2022-10-08 12:02] LABS: Glucose,Whole Blood 90 mg/dL (70-110)
[2022-10-08 13:05] LABS: Glucose,Whole Blood 77 mg/dL (70-110)
[2022-10-08 13:55] LABS: Glucose,Whole Blood 77 mg/dL (70-110)
[2022-10-08] MEDS ORDERED: SIMETHICONE 80 MG CHEWABLE PO PRN (17:34)
[2022-10-08] MEDS ORDERED: HYDROCORTISONE 2.5% RECTAL CREAM 30 GM TUBE RECTAL PRN (17:34)
[2022-10-08] MEDS ORDERED: ZOLPIDEM 5 MG TAB PO PRN (17:34)
[2022-10-08] MEDS ORDERED: diphenhydrAMINE 50 MG CAP PO PRN (17:34)
[2022-10-08] MEDS ORDERED: diphenhydrAMINE 25 MG CAP PO PRN (17:34)
[2022-10-08] MEDS ORDERED: LANOLIN CREAM 5 GM TUBE TOPICAL PRN (17:34)
[2022-10-08] MEDS ORDERED: BENZOCAINE/MENTHOL SPRAY 1 GM/SPRAY AEROSOL TOPICAL PRN (17:34)
[2022-10-08] MEDS ORDERED: ACETAMINOPHEN TAB 325 MG TAB PO PRN (17:34)
[2022-10-08] MEDS ORDERED: diphenhydrAMINE 50 MG/ML 1 ML VIAL IVP PRN ×2 (17:34)
[2022-10-08] MEDS: IBUPROFEN 600 MG TAB PO PRN (18:16)
[2022-10-08] MEDS: SENNOSIDES-DOCUSATE SODIUM 1 EACH TAB PO SCH (20:14)
[2022-10-09] MEDS: IBUPROFEN 600 MG TAB PO PRN ×2 (00:31→06:52)
[2022-10-09 07:30] LABS: Basophils % (A) 0 %; Eosinophils # (A) 0.1 k/uL (0-0.7); Eosinophils % (A) 1 %; HCT 31.9 % (34.0-46.0); HGB 11.1 gm/dL (11.4-16.0); Lymphocytes # (A) 1.4 k/uL (1.0-4.8); Lymphocytes % (A) 16 %; MCH 29.6 pg (25.0-35.0); MCHC 34.9 g/dL (31.0-37.0); Mean Platelet Volume 9.5; Monocytes # (A) 0.5 k/uL (0-1.0); Monocytes % (A) 5 %; Neutrophils # (A) 6.6 k/uL (1.3-7.7); Neutrophils % (A) 75 %; Platelet Count 152 k/uL (150-450); RBC 3.75 m/uL (3.80-5.40); RDW 14.9 % (11.5-15.5); WBC 8.8 k/uL (3.8-10.6)
--- NOTE | 2022-10-09 07:58 | P.HPOB ---
History of Present Illness H&P Date: 10/08/22 Chief Complaint: induction of labor 27-year-old presents at 39 weeks and 4 days for induction of labor. She is not evy. heart tones 135 with moderate variability and reactive. Cervix is 4 cm dilated, 70% effaced, -1 station. Patient has gestational diabetes A2 controlled with insulin. Review of Systems All systems: negative Constitutional: Denies chills, Denies fever Eyes: denies blurred vision, denies pain Ears, nose, mouth and throat: Denies headache, Denies sore throat Cardiovascular: Denies chest pain, Denies shortness of breath Respiratory: Denies cough Gastrointestinal: Denies abdominal pain, Denies diarrhea, Denies nausea, Denies vomiting Genitourinary: Denies dysuria, Denies hematuria Musculoskeletal: Denies myalgias Integumentary: Denies pruritus, Denies rash Neurological: Denies numbness, Denies weakness Psychiatric: Denies anxiety, Denies depression Endocrine: Denies fatigue, Denies weight change Past Medical History Past Medical History: No Reported History Additional Past Medical History / Comment(s): Obstetric history: First was a vaginal delivery. This is her second and she has had care with me since 8 weeks gestation. O+, abs neg, Rub Imm, RPR NR, Hep neg, HIV NR. Declined quad, normal anatomy US. She has gestational diabetes and told with insulin and GBS neg. History of Any Multi-Drug Resistant Organisms: None Reported Past Surgical History: Tonsillectomy Past Anesthesia/Blood Transfusion Reactions: No Reported Reaction Past Psychological History: No Psychological Hx Reported Smoking Status: Never smoker Past Alcohol Use History: Occasional Past Drug Use History: None Reported - Past Family History Father Family Medical History: No Reported History Medications and Allergies Home Medications Medication Instructions Recorded Confirmed Type Ibuprofen [Motrin Ib] 400 mg PO Q8H PRN 07/14/20 07/14/20 History Magnesium Oxide [Mag-Ox] 400 mg PO BID 10/08/22 10/08/22 History Vit No.179/Iron/Folic 1 each PO DAILY 10/08/22 10/08/22 History [ Tablet] Allergies Allergy/AdvReac Type Severity Reaction Status Date / Time No Known Allergies Allergy Verified 10/05/20 19:22 Exam Osteopathic Statement: *. No significant issues noted on an osteopathic structural exam other than those noted in the History and Physical/Consult. Vital Signs Temp Pulse Resp BP Pulse Ox 10/09/22 04:00 97.8 F 86 16 110/70 98 10/09/22 00:00 98.4 F 70 16 105/68 97 10/08/22 20:00 98.5 F 103 H 16 109/69 98 10/08/22 16:30 98.5 F 100 16 127/85 10/08/22 16:00 83 16 107/60 10/08/22 15:30 75 16 103/57 10/08/22 15:15 84 16 115/66 10/08/22 15:00 84 16 118/58 10/08/22 14:45 72 16 107/61 10/08/22 14:30 97.6 F 86 16 116/68 Intake and Output 10/08/22 10/09/22 10/09/22 22:59 06:59 14:59 Output Total 160 Balance -160 Output: Output, Quantitative 160 Blood Loss Other: # Voids 2 Heart: Regular rate and rhythm Lungs: Clear to auscultation bilaterally Abdomen: Soft, nontender Extremities: Negative Homans sign Results Result Diagrams: 10/09/22 07:02 Abnormal Lab Results - Last 24 Hours (Table) 10/09/22 Range/Units 07:02 RBC 3.75 L (3.80-5.40) m/uL Hgb 11.1 L (11.4-16.0) gm/dL Hct 31.9 L (34.0-46.0) % Assessment and Plan (1) Encounter for induction of labor Current Visit: Yes Status: Acute Code(s): Z34.90 - ENCNTR FOR SUPRVSN OF NORMAL , UNSP, UNSP TRIMESTER SNOMED Code(s): 165667175 (2) Gestational diabetes Current Visit: Yes Status: Acute Code(s): O24.419 - GESTATIONAL DIABETES MELLITUS IN , UNSP CONTROL SNOMED Code(s): 64115009 Plan: 1. Induction of labor with amniotomy and Pitocin 2. Anticipate normal vaginal delivery
--- NOTE | 2022-10-09 08:00 | P.PROBDLV ---
Vaginal Delivery Note - . Vaginal Delivery Note: 27-year-old presents at 39 weeks and 4 days for induction of labor. She is not evy. heart tones 135 with moderate variability and reactive. Cervix is 4 cm dilated, 70% effaced, -1 station. Patient has gestational diabetes A2 controlled with insulin. Pitocin was started. Amniotomy performed at 7:43 AM and clear fluid noted. When the patient was uncomfortable she did get an epidural. Her cervix was completely dilated at 1407. She pushed, delivered a viable female over intact perineum under epidural anesthesia at 1416. Head delivered OA, nuchal cord was tight and doubly clamped and cut at the perineum. Anterior shoulder delivered gentle downward guidance for by posterior shoulder and rest of body. Nose and mouth bulb suctioned, cord clamped and cut, placed on mother's abdomen. Apgars 9, 9, weight 7 lbs. 11 oz. Placenta delivered spontaneously, intact with three- vessel cord at 1418. Vagina, cervix, and perineum were inspected. Second- degree midline laceration was repaired with 3-0 Vicryl. Estimated blood loss 100 mL. Mother and baby in stable condition.
--- NOTE | 2022-10-09 08:02 | P.DS ---
Providers Date of admission: 10/08/22 05:57 Expected date of discharge: 10/09/22 Attending physician: Gay Hernandez Primary care physician: Stated None - Discharge Diagnosis(es) (1) Encounter for induction of labor Current Visit: Yes Status: Resolved (2) Gestational diabetes Current Visit: Yes Status: Resolved (3) Normal vaginal delivery Current Visit: No Status: Acute Hospital Course: Patient presented for induction of labor. She underwent a normal vaginal delivery. course has been uncomplicated. She denies nausea, vomiting, chest pain, shortness of breath or calf pain. I had a conversation with the patient and her regarding her depression scale being elevated and the answer the question about whether or not she wanted to hurt herself was "hardly ever". Patient says she is doing okay and will call a counselor today, she has the phone number. I did offer to put her on medication and she will think about this discussed with her and get back with me very shortly. Patient does not feel like she wants to hurt herself now. Patient will be discharged home to follow-up with me in a few weeks. Plan - Discharge Summary New Discharge Prescriptions: New Ibuprofen [Motrin] 600 mg PO Q6HR PRN #30 tab PRN Reason: Mild Pain Or Fever >= 100.5 No Action Ibuprofen [Motrin Ib] 400 mg PO Q8H PRN PRN Reason: Pain Or Fever > 100.5 Vit No.179/Iron/Folic [ Tablet] 1 each PO DAILY Magnesium Oxide [Mag-Ox] 400 mg PO BID Discharge Medication List Ibuprofen [Motrin Ib] 400 mg PO Q8H PRN 07/14/20 [History] Magnesium Oxide [Mag-Ox] 400 mg PO BID 10/08/22 [History] Vit No.179/Iron/Folic [ Tablet] 1 each PO DAILY 10/08/22 [His tory] Ibuprofen [Motrin] 600 mg PO Q6HR PRN #30 tab 10/09/22 [Rx] Follow up Appointment(s)/Referral(s): Gay Hernandez DO [Doctor of Osteopathic Medicine] - 11/20/22 3:45 pm Discharge Disposition: HOME SELF-CARE
[2022-10-09] MEDS: SENNOSIDES-DOCUSATE SODIUM 1 EACH TAB PO SCH (08:04)
[2022-10-09 11:52] VITALS: BP 106/70; PULSE 80; RESP 17; TEMP 97.8
== END 2022-10-09 15:35 | disposition home or self-care (01) | DRG 807 ==
LOC: 4FBP 05:57
PROVIDERS: ADMIT Obstetrics & Gynecology; ATTEND Obstetrics & Gynecology
PROC: 10907ZC Drainage of Amniotic Fluid, Therapeutic from Products of Conception, Via Natural or Artificial Opening (ICD-10-PCS; principal; 2022-10-08)
PROC: 10E0XZZ Delivery of Products of Conception, External Approach (ICD-10-PCS; 2022-10-08)
PROC: 3E033VJ Introduction of Other Hormone into Peripheral Vein, Percutaneous Approach (ICD-10-PCS; 2022-10-08)
DX: O24.429 Gestational diabetes mellitus in childbirth, unspecified control (principal); Z37.0 Single live birth; O69.1XX0 Labor and delivery complicated by cord around neck, with compression, not applicable or unspecified; Z3A.39 39 weeks gestation of pregnancy
CPT/HCPCS: 83036; 85025; 86850; 86900; 86901

== ENCOUNTER 2024-06-06 10:02 | Emergency (ER) | payer MEDICAID, OTHER ==
[2024-06-06 10:09] LABS: Glucose,Whole Blood 92 mg/dL (70-110)
--- NOTE | 2024-06-06 10:21 | ED ---
Abdominal Pain HPI - General Source: patient, EMS, RN notes reviewed Mode of arrival: EMS Limitations: no limitations - History of Present Illness MD Complaint: abdominal pain <Nadira Callahan - Last Filed: 06/06/24 10:20> <Brandy Mart - Last Filed: 06/08/24 00:35> - General Chief Complaint: Abdominal Pain Stated Complaint: Abdominal Pain Time Seen by Provider: 06/06/24 10:10 - History of Present Illness Initial Comments: Quick Note: This is a 29-year-old female who presents to the emergency department for abdominal pain. Reports sudden onset lower abdominal pain with nausea and vomiting starting this morning. She is 11 days and delivered at [facility]. States that she has had bleeding since she delivered and this has persisted. States that this was an uncomplicated vaginal delivery. (Nadira Callahan) 29-year-old female who presents to the emergency department with lower abdominal pain. Patient is G3, P3, 11 days who had sudden onset of lower abdominal pain just prior to coming into the hospital. States pain came on suddenly and that was maximal intensity. Located in the suprapubic region as well as her bilateral lower quadrants. She describes it as a sharp sensation. Had associated nausea with vomiting. She has had some bleeding since delivery and states that this has not changed in the heaviness of her flow. She does admit that 2 days ago the discharge started to smell somewhat foul. She denies dysuria, hematuria or difficulty voiding. No diarrhea, constipation, black or bloody stools. She did have a vaginal delivery with suture repair. She denies history of any abdominal surgeries. No fevers. No chest pain or difficulty breathing. No back pain. No other alleviating, precipitating or modifying factors (Brandy Mart) - Related Data Home Medications Medication Instructions Recorded Confirmed Ibuprofen [Motrin Ib] 400 mg PO Q8H PRN 07/14/20 07/14/20 Magnesium Oxide [Mag-Ox] 400 mg PO BID 10/08/22 10/08/22 Vit No.179/Iron/Folic 1 each PO DAILY 10/08/22 10/08/22 [ Tablet] Previous Rx's Medication Instructions Recorded Ibuprofen [Motrin] 600 mg PO Q6HR PRN #30 tab 10/09/22 Doxycycline Hyclate 100 mg PO BID 1 Days #14 tab 06/06/24 Allergies Allergy/AdvReac Type Severity Reaction Status Date / Time No Known Allergies Allergy Verified 06/06/24 10:10 Review of Systems ROS Other: All systems not noted in ROS Statement are negative. <Nadira Callahan - Last Filed: 06/06/24 10:20> ROS Other: All systems not noted in ROS Statement are negative. <Brandy Mart Pedro - Last Filed: 06/08/24 00:35> ROS Statement: Those systems with pertinent positive or pertinent negative responses have been documented in the HPI. Past Medical History Past Medical History: No Reported History Additional Past Medical History / Comment(s): Obstetric history: First was a vaginal delivery. This is her second and she has had care with me since 8 weeks gestation. O+, abs neg, Rub Imm, RPR NR, Hep neg, HIV NR. Declined quad, normal anatomy US. She has gestational diabetes and told with insulin and GBS neg. History of Any Multi-Drug Resistant Organisms: None Reported Past Surgical History: Tonsillectomy Past Anesthesia/Blood Transfusion Reactions: No Reported Reaction Past Psychological History: No Psychological Hx Reported Smoking Status: Never smoker Past Alcohol Use History: Occasional Past Drug Use History: None Reported - Past Family History Father Family Medical History: No Reported History <Nadira Callahan - Last Filed: 06/06/24 10:20> General Exam Limitations: no limitations <Nadira Callahan - Last Filed: 06/06/24 10:20> General appearance: alert, in no apparent distress Head exam: Present: atraumatic, normocephalic, normal inspection Eye exam: Present: normal appearance, PERRL, EOMI. Absent: scleral icterus, con junctival injection, periorbital swelling ENT exam: Present: normal exam, mucous membranes moist Neck exam: Present: normal inspection. Absent: tenderness, meningismus, lymphadenopathy Respiratory exam: Present: normal lung sounds bilaterally. Absent: respiratory distress, wheezes, rales, rhonchi, stridor Cardiovascular Exam: Present: regular rate, normal rhythm, normal heart sounds. Absent: systolic murmur, diastolic murmur, rubs, gallop, clicks GI/Abdominal exam: Present: soft, tenderness (Left, right lower quadrant as well as suprapubic region.), normal bowel sounds. Absent: distended, guarding, rebound, rigid External exam: Present: normal external exam Speculum exam: Present: vaginal discharge (Mild, orangered in coloration) Extremities exam: Present: normal inspection, full ROM, normal capillary refill. Absent: tenderness, pedal edema, joint swelling, calf tenderness Back exam: Present: normal inspection Neurological exam: Present: alert, oriented X3, CN II-XII intact Psychiatric exam: Present: normal affect, normal mood Skin exam: Present: warm, dry, intact, normal color. Absent: rash <Brandy Mart - Last Filed: 06/08/24 00:35> - General Exam Comments Initial Comments: Visual Physical Exam Vital signs reviewed General: Well-appearing, nontoxic, no acute distress. Head: Normocephalic, atraumatic Eyes: PERRLA, EOMI ENT: Airway patent Chest: Nonlabored breathing Skin: No visual rash, normal skin tone Neuro: Alert and oriented 3 Musculoskeletal: No gross abnormalities (Nadira Callahan) Course Vital Signs 06/06/24 06/06/24 06/06/24 10:04 13:57 16:36 Temperature 98.0 F 98.1 F Pulse Rate 60 75 74 Respiratory 18 18 17 Rate Blood Pressure 114/73 101/60 116/78 O2 Sat by Pulse 100 99 99 Oximetry Medical Decision Making <Nadira Callahan - Last Filed: 06/06/24 10:20> - Lab Data Result diagrams: 06/06/24 10:18 06/06/24 10:18 <Brandy Mart - Last Filed: 06/08/24 00:35> - Medical Decision Making I performed the QuickNote portion of this chart. Signed Nadira Callahan PA-C. (Nadira Callahan) Was pt. sent in by a medical professional or institution ([facility], LEADERSHIP RECRUITER, urgent care, hospital, or fpc...) When possible be specific @ -No Did you speak to anyone other than the patient for history (EMS, parent, family, police, friend...)? What history was obtained from this source @ -No Did you review nursing and triage notes (agree or disagree)? Why? @ -I reviewed and agree with nursing and triage notes Were old charts reviewed (outside hosp., previous admission, EMS record, old EKG, old radiological studies, urgent care reports/EKG's, fpc records)? Report findings @ -No old charts were reviewed Differential Diagnosis (chest pain, altered mental status, abdominal pain women, abdominal pain men, vaginal bleeding, weakness, fever, dyspnea, syncope, headache, dizziness, GI bleed, back pain, seizure, CVA, palpatations, mental health, musculoskeletal)? @ -Differential Abdominal Pain Women: Appendicitis, Cholecystitis, diverticulosis, ischemic bowel, pancreatitis, hepatitis, UTI, gastroenteritis, AAA, incarcerated hernia, bowel obstruction, constipation, inflammatory bowel, hepatitis, peptic ulcer disease, splenic infarction, perforated viscus, vulvitis, ovarian torsion, PID, kidney stone, placenta abruption, this is not meant to be an all-inclusive list EKG interpreted by me (3pts min.). @ -Not done X-rays interpreted by me (1pt min.). @ -None done CT interpreted by me (1pt min.). @ -None done U/S interpreted by me (1pt. min.). @ -Yes and demonstrates debris within the uterus What testing was considered but not performed or refused? (CT, X-rays, U/S, labs)? Why? @ -None What meds were considered but not given or refused? Why? @ -None Did you discuss the management of the patient with other professionals (professionals i.e. , PA, LEADERSHIP RECRUITER, lab, RT, psych nurse, social group worker, financial compliance manager, teacher, conservation officer, employment evaluator/case manager)? Give summary @ -I spoke with Dr. Hernandez in regards to the patient's care. Was smoking cessation discussed for >3mins.? @ -No Was critical care preformed (if so, how long)? @ -No Were there social determinants of health that impacted care today? How? (Homelessness, low income, unemployed, alcoholism, drug addiction, transportation, low edu. Level, literacy, decrease access to med. care, group home, rehab)? @ -No Was there de-escalation of care discussed even if they declined (Discuss DNR or withdrawal of care, Hospice)? DNR status @ -No What co-morbidities impacted this encounter? (DM, HTN, Smoking, COPD, CAD, Cancer, CVA, ARF, Chemo, Hep., AIDS, mental health diagnosis, sleep apnea, morbid obesity)? @ -None Was patient admitted / discharged? Hospital course, mention meds given and route, prescriptions, significant lab abnormalities, going to OR and other pert inent info. @ -Upon arrival patient seen and evaluated in hallway 20. Thorough history and physical exam was performed. IV was established. Patient was administered nausea and pain medications and does have relief. Laboratory studies were conducted. Ultrasound was performed. Beta quant is only 5. I did perform a pelvic exam and only minimal discharge is appreciated. I did discuss the case with Dr. Hernandez who is the GIS ANALYST on-call. States that the patient can be preemptively treated with doxycycline even though the diagnosis of endometritis is not supported at this time. I did speak with the patient in regards to this and she was agreeable to attempting antibiotics to see if this helps her symptoms. I counseled her extensively that if she has any new or worsening symptoms that she needs to return to the emergency department for further evaluation. Patient was agreeable to this. She will alternate Motrin with Tylenol for pain control. Patient agreeable to plan was discharged home in stable condition Undiagnosed new problem with uncertain prognosis? @ -Yes Drug Therapy requiring intensive monitoring for toxicity (Heparin, Nitro, Insulin, Cardizem)? @ -No Were any procedures done? @ -No Diagnosis/symptom? @ -Acute lower abdominal pain, status post vaginal delivery Acute, or Chronic, or Acute on Chronic? @ -Acute Uncomplicated (without systemic symptoms) or Complicated (systemic symptoms)? @ -Complicated Side effects of treatment? @ -No Exacerbation, Progression, or Severe Exacerbation? @ -No Poses a threat to life or bodily function? How? (Chest pain, USA, MS, pneumonia, PE, COPD, DKA, ARF, appy, cholecystitis, CVA, Diverticulitis, Homicidal, Suicidal, threat to staff... and all critical care pts) @ -No (Brandy Mart) - Lab Data Lab Results 06/06/24 06/06/24 06/06/24 Range/Units 10:08 10:18 10:18 WBC 9.1 (3.8-10.6) k/uL RBC 4.22 (3.80-5.40) m/uL Hgb 11.4 (11.4-16.0) gm/dL Hct 34.7 (34.0-46.0) % MCV 82.1 (80.0-100.0) fL MCH 27.1 (25.0-35.0) pg MCHC 33.0 (31.0-37.0) g/dL RDW 14.6 (11.5-15.5) % Plt Count 215 (150-450) k/uL MPV 7.9 Neutrophils % 78 % Lymphocytes % 14 % Monocytes % 3 % Eosinophils % 2 % Basophils % 0 % Neutrophils # 7.1 (1.3-7.7) k/uL Lymphocytes # 1.3 (1.0-4.8) k/uL Monocytes # 0.3 (0-1.0) k/uL Eosinophils # 0.2 (0-0.7) k/uL Basophils # 0.0 (0-0.2) k/uL Sodium 139 (137-145) mmol/L Potassium 4.2 (3.5-5.1) mmol/L Chloride 112 H (98-107) mmol/L Carbon Dioxide 19 L (22-30) mmol/L Anion Gap 8 mmol/L BUN 15 (7-17) mg/dL Creatinine 0.58 (0.52-1.04) mg/dL Est GFR (CKD-EPI)AfAm >90 (>60 ml/min/1.73 sqM) Est GFR (CKD-EPI)NonAf >90 (>60 ml/min/1.73 sqM) Glucose 90 (74-99) mg/dL POC Glucose (mg/dL) 92 (70-110) mg/dL POC Glu Clearing Tub Worker ID [facility] Plasma Lactic Acid Amanuel (0.7-2.0) mmol/L Calcium 8.5 (8.4-10.2) mg/dL Total Bilirubin 0.7 (0.2-1.3) mg/dL AST 24 (14-36) U/L ALT 32 (4-34) U/L Alkaline Phosphatase 111 (38-126) U/L Total Protein 6.4 (6.3-8.2) g/dL Albumin 4.0 (3.5-5.0) g/dL HCG, Quant mIU/mL Urine Color Urine Appearance (Clear) Urine pH (5.0-8.0) Ur Specific [place] (1.001-1.035) Urine Protein (Negative) Urine Glucose (UA) (Negative) Urine Ketones (Negative) Urine Blood (Negative) Urine Nitrite (Negative) Urine Bilirubin (Negative) Urine Urobilinogen (<2.0) mg/dL Ur Leukocyte Esterase (Negative) Urine RBC (0-5) /hpf Urine WBC (0-5) /hpf Ur Squamous Epith Cells (0-4) /hpf Urine Bacteria (None) /hpf Urine Mucus (None) /hpf 06/06/24 06/06/24 06/06/24 Range/Units 10:18 10:18 14:03 WBC (3.8-10.6) k/uL RBC (3.80-5.40) m/uL Hgb (11.4-16.0) gm/dL Hct (34.0-46.0) % MCV (80.0-100.0) fL MCH (25.0-35.0) pg MCHC (31.0-37.0) g/dL RDW (11.5-15.5) % Plt Count (150-450) k/uL MPV Neutrophils % % Lymphocytes % % Monocytes % % Eosinophils % % Basophils % % Neutrophils # (1.3-7.7) k/uL Lymphocytes # (1.0-4.8) k/uL Monocytes # (0-1.0) k/uL Eosinophils # (0-0.7) k/uL Basophils # (0-0.2) k/uL Sodium (137-145) mmol/L Potassium (3.5-5.1) mmol/L Chloride (98-107) mmol/L Carbon Dioxide (22-30) mmol/L Anion Gap mmol/L BUN (7-17) mg/dL Creatinine (0.52-1.04) mg/dL Est GFR (CKD-EPI)AfAm (>60 ml/min/1.73 sqM) Est GFR (CKD-EPI)NonAf (>60 ml/min/1.73 sqM) Glucose (74-99) mg/dL POC Glucose (mg/dL) (70-110) mg/dL POC Glu Clearing Tub Worker ID Plasma Lactic Acid Amanuel 0.8 (0.7-2.0) mmol/L Calcium (8.4-10.2) mg/dL Total Bilirubin (0.2-1.3) mg/dL AST (14-36) U/L ALT (4-34) U/L Alkaline Phosphatase (38-126) U/L Total Protein (6.3-8.2) g/dL Albumin (3.5-5.0) g/dL HCG, Quant 5.8 mIU/mL Urine Color Light Yellow Urine Appearance Cloudy H (Clear) Urine pH 5.0 (5.0-8.0) Ur Specific [place] 1.020 (1.001-1.035) Urine Protein Negative (Negative) Urine Glucose (UA) Negative (Negative) Urine Ketones Negative (Negative) Urine Blood Moderate H (Negative) Urine Nitrite Negative (Negative) Urine Bilirubin Negative (Negative) Urine Urobilinogen <2.0 (<2.0) mg/dL Ur Leukocyte Esterase Large H (Negative) Urine RBC 38 H (0-5) /hpf Urine WBC 86 H (0-5) /hpf Ur Squamous Epith Cells <1 (0-4) /hpf Urine Bacteria Rare H (None) /hpf Urine Mucus Rare H (None) /hpf Disposition <Nadira Callahan - Last Filed: 06/06/24 10:20> Is patient prescribed a controlled substance at d/c from ED?: No Time of Disposition: 16:03 <Brandy Mart - Last Filed: 06/08/24 00:35> Clinical Impression: Pelvic pain Disposition: HOME SELF-CARE Condition: Stable Instructions (If sedation given, give patient instructions): Pelvic Pain in Women (ED) Additional Instructions: Please take the antibiotics starting tomorrow. Call your OB to let them know about your symptoms. If you have any worsening pain, development of fever or worsening discharge, return to the emergency department. The antibiotic is safe to take while breast-feeding Prescriptions: Doxycycline Hyclate 100 mg PO BID 1 Days #14 tab Referrals: Best Thomas MD [Primary Care Provider] - 1-2 days
[2024-06-06 10:27] LABS: Basophils % (A) 0 %; Eosinophils # (A) 0.2 k/uL (0-0.7); Eosinophils % (A) 2 %; HCT 34.7 % (34.0-46.0); HGB 11.4 gm/dL (11.4-16.0); Lymphocytes # (A) 1.3 k/uL (1.0-4.8); Lymphocytes % (A) 14 %; MCH 27.1 pg (25.0-35.0); MCV 82.1 fL (80.0-100.0); Mean Platelet Volume 7.9; Monocytes # (A) 0.3 k/uL (0-1.0); Monocytes % (A) 3 %; Neutrophils # (A) 7.1 k/uL (1.3-7.7); Neutrophils % (A) 78 %; Platelet Count 215 k/uL (150-450); RBC 4.22 m/uL (3.80-5.40); RDW 14.6 % (11.5-15.5); WBC 9.1 k/uL (3.8-10.6)
[2024-06-06] MEDS: KETOROLAC 15 MG/ML 1 ML VIAL IVP STA (10:34)
[2024-06-06] MEDS: ONDANSETRON 4 MG/2 ML VIAL IVP STA (10:34)
[2024-06-06] MEDS: SODIUM CHLORIDE 0.9% 1,000 ML IV STA (10:34)
[2024-06-06] MEDS: MORPHINE SULFATE 4 MG/ML SYRINGE IVP STA ×2 (10:35→14:04)
[2024-06-06 10:42] LABS: ALT 32 U/L (4-34); AST 24 U/L (14-36); African American GFR (CKD) >90 (>60 ml/min/1.73 sqM); Alkaline Phosphatase 111 U/L (38-126); Anion Gap 8 mmol/L; Blood Urea Nitrogen 15 mg/dL (7-17); Calcium 8.5 mg/dL (8.4-10.2); Carbon Dioxide 19 mmol/L (22-30); Chloride 112 mmol/L (98-107); Glucose 90 mg/dL (74-99); Non-African American GFR(CKD) >90 (>60 ml/min/1.73 sqM); Potassium 4.2 mmol/L (3.5-5.1); Sodium 139 mmol/L (137-145); Total Bilirubin 0.7 mg/dL (0.2-1.3); Total Protein 6.4 g/dL (6.3-8.2)
--- NOTE | 2024-06-06 13:59 | US ---
EXAMINATION TYPE: US pelvic complete DATE OF EXAM: 06/06/2024 COMPARISON: NONE CLINICAL INDICATION: Female, 29 years old with history of Pelvic pain; 11 days TECHNIQUE: Transabdominal (TA). Grayscale and and color Doppler imaging of the pelvis. Doppler imaging: Not performed. FINDINGS: Date of LMP: Unknown EXAM MEASUREMENTS: Uterus: 14.6 x 6.7 x 9.6 cm Endometrial Stripe: 1.2 cm Right Ovary: 3.0 x 1.9 x 2.3 cm Left Ovary: 3.3 x 2.4 x 2.6 cm 1. Uterus: enlarged, uterus 2. Endometrium: fluid and debris seen within endo 3. Right Ovary: wnl 4. Left Ovary: wnl 5. Bilateral Adnexa: left adnexa - free fluid 6. Posterior cul-de-sac: wnl IMPRESSION: Debris and fluid in the endometrium. No areas of increased vascularity to suggest retained products o f conception. Consider short-term follow-up if there remains clinical concern. [facility], , 06/06/2024 1:57 PM
[2024-06-06 14:46] LABS: Appearance,Urine Cloudy (Clear); Bacteria,Urine Rare /hpf; Bilirubin,Urine Negative (Negative); Blood,Urine Moderate (Negative); Color,Urine Light Yellow; Glucose,Urine (UA) Negative (Negative); Ketones,Urine Negative (Negative); Leukocyte Esterase,Urine Large (Negative); Mucus,Urine Rare /hpf; Nitrite,Urine Negative (Negative); Protein,Urine Negative (Negative); RBC,Urine 38 /hpf (0-5); Squamous Epithelial Cell,Urine <1 /hpf (0-4); Urobilinogen,Urine <2.0 mg/dL (<2.0); WBC,Urine 86 /hpf (0-5)
[2024-06-06] MEDS: DOXYCYCLINE 100 MG CAP PO STA (16:32)
[2024-06-06 16:42] VITALS: BP 116/78; PULSE 74; RESP 17; TEMP 98.1
== END 2024-06-06 16:40 | disposition home or self-care (01) ==
LOC: EC 10:02
DX: R10.2 Pelvic and perineal pain (principal)
CPT/HCPCS: 36415; 80053; 83605; 85025; 81001; 84702; 76856; 99284; 96374; 96375 ×2; 96376; 96361; J2270; J2405; J1885